=== PATIENT | female | born 2000 | race Caucasian/White ===

== ENCOUNTER 2023-06-05 11:27 | Outpatient (CLI) | payer OTHER | END 2023-06-05 11:28 | disposition home or self-care (01) | LOC: CSHRAD 11:27 | PROVIDERS: ATTEND Internal Medicine Gastroenterology | DX: K60.2 Anal fissure, unspecified (principal); K64.9 Unspecified hemorrhoids; K59.00 Constipation, unspecified; Z33.1 Pregnant state, incidental | CPT/HCPCS: 74019 ==

== ENCOUNTER 2024-02-25 09:31 | Outpatient (CLI) | payer OTHER ==
[2024-02-25 10:47] LABS: #Basophils 0.02 10x3/uL (0.0-0.2); #Eosinophils 0.16 10x3/uL (0.0-0.5); #Monocytes 0.38 10x3/uL (0.0-1.1); #Neutrophils 2.48 10x3/uL (1.5-8.4); %Basophils 0.4 % (0.0-2.0); %Lymphocytes 41.9 % (18.0-47.0); %Monocytes 7.2 % (0.0-10.0); %Neutrophils 47.3 % (40.0-75.0); Hematocrit 43.4 % (34.9-44.5); Hemoglobin 14.1 g/dL (12.0-15.5); Mean Corpuscular HGB CONC 32.5 g/dL (32.0-36.0); Mean Corpuscular Hemoglobin 30.9 pg (27.0-33.0); Mean Platelet Volume 9.7 fL (7.4-10.4); Platelet Count 234 10x3/uL (150-450); RBC Distribution Width 12.4 % (11.5-14.5); Red Blood Cell (RBC) Count 4.57 10x6/uL (3.90-5.03); White Blood Cell (WBC) Count 5.3 10x3/uL (3.5-10.5)
[2024-02-25 10:56] LABS: BHCG - Serum Negative (NEGATIVE); Pregs Control Background? CLEAR/WHITE (CLR/WHITE); Pregs Control Bar Appear? YES (CONTROL BAR)
== END 2024-02-25 09:32 | disposition home or self-care (01) ==
LOC: CSHLAB 09:31
PROVIDERS: ATTEND Surgery
DX: Z01.812 Encounter for preprocedural laboratory examination (principal); K60.1 Chronic anal fissure
CPT/HCPCS: 84703; 85025

== ENCOUNTER 2024-03-02 05:58 | Day surgery (SDC) | payer OTHER ==
[2024-02-25 09:59] VITALS: BMI 19.8
[2024-03-02] MEDS ORDERED: Bupivacaine HCl 0.5%/Epinephrine 1:200,000/PF 30 ml Vial ONE (06:59)
[2024-03-02] MEDS ORDERED: Methylene Blue 50 MG/10 ML AMPUL ONE (06:59)
[2024-03-02] MEDS ORDERED: Lidocaine 2% PF 5 ML VIAL ONE (06:59)
[2024-03-02] MEDS ORDERED: Mupirocin 2% Ointment 22 GM Tube ONE (07:00)
[2024-03-02] MEDS ORDERED: PROPOFOL 20 ML ONE ×2 (07:07→07:32)
[2024-03-02] MEDS ORDERED: fentaNYL 50 mcg/mL 1 mL Vial ONE (07:08)
[2024-03-02] MEDS ORDERED: Lidocaine 1% PF 5 ML VIAL ONE (07:08)
[2024-03-02] MEDS ORDERED: Lidocaine 2% 6 ML (Jelly) SYR ONE ×2 (07:09)
[2024-03-02] MEDS ORDERED: Triple Antibiotic Oint 1 GM Packet ONE ×2 (07:11→07:12)
[2024-03-02] MEDS ORDERED: ceFOXitin 1 GM VIAL ONE ×3 (07:18→07:27)
[2024-03-02] MEDS ORDERED: Dexamethasone 20 MG/5 ML VIAL ONE (07:45)
[2024-03-02] MEDS ORDERED: Ondansetron PF 4 MG/2 ML Vial ONE (07:45)
[2024-03-02] MEDS ORDERED: Meperidine HCl/PF 25 MG (1 mL) VIAL ONE (08:18)
[2024-03-02] MEDS ORDERED: HYDROcodone/Acetaminophen 5/325 mg Tablet ONE (08:52)
== END 2024-03-02 09:25 | disposition home or self-care (01) ==
LOC: CSHSDC 05:58
PROVIDERS: ATTEND Surgery
PROC: 0D8R0ZZ Division of Anal Sphincter, Open Approach (ICD-10-PCS; principal; 2024-03-02)
DX: K60.1 Chronic anal fissure (principal)
CPT/HCPCS: J0694; J1100; J2175; J2405; J2704; J3010